=== PATIENT | male | born 1960 | race Two or more races ===

== ENCOUNTER 2018-07-31 13:09 | Emergency (ER) | payer OTHER ==
[~2018-07-31] VITALS: Ht 165.1 cm; Wt 72.6 kg
[2018-07-31 13:15] VITALS: BP 131/84
--- NOTE | 2018-07-31 13:15 | NUR ---
ED Nurse Note: pt walked in to ER c/o 10/10 Lt leg pain. pt Telugu speaker, aao x4 and accompanied by spouse. skin clean and intact.
[2018-07-31] MEDS ORDERED: TRAMADOL HCL100 M2 ORAL (13:24)
[2018-07-31 14:08] LABS: APPEARANCE,URINE CLEAR; BILIRUBIN, URINE NEGATIVE (NEGATIVE); GLUCOSE, URINE (UA) NEGATIVE (NEGATIVE); KETONES,URINE NEGATIVE (NEGATIVE); LEUKOCYTE ESTERASE ,URINE 1+ (NEGATIVE); NITRITE,URINE NEGATIVE (NEGATIVE); PH,URINE 8 (4.5-8.0); PROTEIN,URINE NEGATIVE (NEGATIVE); UROBILINOGEN,URINE 1 MG/DL (0.0-1.0)
[2018-07-31 14:15] LABS: COLOR,URINE YELLOW
--- NOTE | 2018-07-31 15:21 | Emergency Room Report ---
History of Present Illness General Chief Complaint: Back Pain-No Injury Source: Patient Present Illness HPI 57-year-old male with no significant medical history or complaining of few weeks of pain on the left maxillary side radiating to left arm and left lower leg tingling. Patient denies injury however reports being of a liter and carrying a lot of heavy trays on the affected side. Patient denies any shortness of breath, complains of left-sided chest pain 3 weeks. Denies history of smoking, hypertension, cardiac disease. Patient is rating the pain 5 out of 10, with movement, intermittent and has not taken any medication for pain. According to his family member he has family history of renal cancer. Denies any urinary symptoms or blood in the urine. Denies flank pain Allergies: Coded Allergies: No Known Allergies (Unverified , 07/31/18) Patient History Past Medical History: see triage record Past Surgical History: none Pertinent Family History: none Reviewed Nursing Documentation: PMH: Agreed; PSxH: Agreed Nursing Documentation-PMH Past Medical History: No Stated History Review of Systems All Other Systems: negative except mentioned in HPI Physical Exam Vital Signs Date Time Temp Pulse Resp B/P (MAP) Pulse Ox O2 Delivery O2 Flow Rate FiO2 07/31/18 13:15 98.1 82 18 131/84 100 Room Air Medical Decision Making PA Attestation All diagnoses and treatment plans were reviewed and considered by supervising physician Dr. Cesar Diagnostic Impression: Primary Impression: Chest wall muscle strain Additional Impression: Atelectasis ER Course 57-year-old male with no significant medical history or complaining of few weeks of pain on the left maxillary side radiating to left arm and left lower leg tingling. Patient denies injury however reports being of a liter and carrying a lot of heavy trays on the affected side. Patient denies any shortness of breath, complains of left-sided chest pain 3 weeks. Denies history of smoking, hypertension, cardiac disease. Patient is rating the pain 5 out of 10, with movement, intermittent and has not taken any medication for pain. According to his family member he has family history of renal cancer. Denies any urinary symptoms or blood in the urine. Denies flank pain Ddx considered but are not limited to chest contusion, chest wall muscle strain , rib fx, renal disease pneumothorax Vital signs: are WNL, pt. is afebrile H&PE are most consistent with atelectasis unrelated to injury, chest wall muscle strain ORDERS: left rib xray and chest xray, naproxen ED INTERVENTIONS: None required at this time. DISCHARGE: At this time pt. is stable for d/c to home. Will provide printed patient care instructions, and any necessary prescriptions. Care plan and follow up instructions have been discussed with the patient prior to discharge. f/u pcp and referral to pulmonology Chest X-Ray Diagnostic Results Chest X-Ray Diagnostic Results : Chest X-Ray Ordered: Yes # of Views/Limited/Complete: 2 View Indication: Chest Pain EP Interpretation: Yes PA Xray: Interpretation reviewed, by supervising MD, and agrees with findings. Interpretation: no consolidation, no effusion, no pneumothorax Impression: No acute disease Electronically Signed by: charo SKINNER Scribe Text FILM RIBS: No displaced left rib fracture FILM CXR 1 VIEW: Coarsened lung markings. Left basilar atelectasis and/or scarring. Cannot exclude consolidation. No pneumothorax Last Vital Signs Date Time Temp Pulse Resp B/P (MAP) Pulse Ox O2 Delivery O2 Flow Rate FiO2 07/31/18 13:20 98.4 85 19 109/71 100 Room Air Disposition: HOME, SELF-CARE Condition: Stable Scripts Naproxen* (NAPROXEN*) 500 Mg Tablet 500 MG ORAL TWICE A DAY, #30 TAB Prov: Charo Casas 07/31/18 Patient Instructions: Atelectasis, Adult, Muscle Strain Additional Instructions: follow up with primary Dr for further evaluation, MRI, and referral to forest officer for atelactasis Charo Casas Jul 31, 2018 15:21
[2018-07-31] MEDS ORDERED: NAPROXEN500 M2 ORAL (15:22)
[2018-07-31 15:32] VITALS: BP 122/71
--- NOTE | 2018-07-31 15:33 | NUR ---
ER DISCHARGE NOTE: Patient is cleared to be discharged per ERMD, pt is aox4, on room air, accompanied by spouse, with stable vital signs. pt was given dc and prescription instructions, pt was able to verbalize understanding, pt id band removed. pt is able to ambulate with steady gait. pt took all belongings.
== END 2018-07-31 15:32 | disposition home or self-care (01) ==
LOC: EMR 15:20
DX: S29.011A Strain of muscle and tendon of front wall of thorax, initial encounter (principal); X50.0XXA Overexertion from strenuous movement or load, initial encounter; Y92.89 Other specified places as the place of occurrence of the external cause; J98.11 Atelectasis
CPT/HCPCS: 81003; 99283